=== PATIENT | female | born 1995 ===

== ENCOUNTER 2021-03-29 18:43 | Emergency (ER) | payer OTHER ==
--- NOTE | 2021-03-29 19:40 | ER ---
Nurse's Notes [facility] Name: Ric Powers Age: 25 yrs Sex: Female : 1995 Arrival Date: 03/29/2021 Time: 18:46 Bed 17 Private MD: Diagnosis: Other herpesviral infection Presentation: 03/29 18:49 Chief complaint: Patient states: lips swelling since yesterday morning, ice helped a jh5 little but still swollen. Coronavirus screen: Vaccine status: Patient reports being unvaccinated. Client denies travel out of the [place] in the last 14 days. Ebola Screen: Patient negative for fever greater than or equal to 101.5 degrees Fahrenheit, and additional compatible Ebola Virus Disease symptoms Patient denies exposure to infectious person. Patient denies travel to an Ebola-affected area in the 21 days before illness onset. No symptoms or risks identified at this time. Initial Sepsis Screen: Does the patient meet any 2 criteria? No. Patient's initial sepsis screen is negative. Does the patient have a suspected source of infection? No. Patient's initial sepsis screen is negative. Risk Assessment: Do you want to hurt yourself or someone else? Patient reports no desire to harm self or others. Onset of symptoms was March 28, 2021. 18:49 Method Of Arrival: Ambulatory [facility] 18:49 Acuity: MICHELE 4 5 Triage Assessment: 18:51 General: Appears in no apparent distress. comfortable, slender, Behavior is calm, 5 cooperative, appropriate for age. Pain: Denies pain. Historical: - Allergies: 18:50 No Known Allergies; [facility] - Home Meds: 18:50 None [Active]; [facility] - PMHx: 18:50 None; [facility] - Immunization history:: Adult Immunizations up to date. - Social history:: Smoking status: Patient denies any tobacco usage or history of. Assessment: 19:15 General: Appears uncomfortable, Behavior is calm, cooperative. Pain: Complains of pain cc4 in mouth/ upper \T\ lower lips Pain does not radiate. Pain currently is 8 out of 10 on a pain scale. Quality of pain is described as throbbing, Pain began 1 day ago. Is continuous, Alleviated by nothing. Aggravated by eating, Talking. Neuro: No deficits noted. Level of Consciousness is awake, alert, obeys commands, Oriented to person, place, time, situation. Cardiovascular: No deficits noted. Respiratory: No deficits noted. Airway is patent Respiratory effort is even, unlabored, Respiratory pattern is regular, symmetrical. GI: No signs and/or symptoms were reported involving the gastrointestinal system. : No signs and/or symptoms were reported regarding the genitourinary system. EENT: No signs and/or symptoms were reported regarding the EENT system. Derm: Skin is healthy with good turgor, has lesions on multiple upper \T\ lower lips with c/o pain. Musculoskeletal: No signs and/or symptoms reported regarding the musculoskeletal system. Vital Signs: 18:49 BP 113 / 77; Pulse 80; Resp 16; Temp 97.9; Pulse Ox 100% ; Weight 39.46 kg; Height 4 [facility] ft. 9 in. (144.78 cm); 18:49 Body Mass Index 18.83 (39.46 kg, 144.78 cm) [facility] ED Course: 18:46 Patient arrived in ED. as 18:50 Triage completed. [facility] 18:55 Deni Bernal PA is PHCP. [facility] 18:55 Tutu Mcknight MD is Attending Physician. [facility] 19:20 Jane Raymundo, RN is Primary Nurse. 2 Administered Medications: No medications were administered Outcome: 19:39 Discharge ordered by MD. [facility] 19:53 Patient left the ED. [facility] Signatures: Deni Bernal PA PA jmm Martinez, Amelia as Cooper, Christie, RN RN cc4 Jane Raymundo, RN RN sl2 Flora Flanagan RN RN 5
--- NOTE | 2021-03-29 19:40 | EDPHYS ---
Physician Documentation [facility] Name: Ric Powers Age: 25 yrs Sex: Female : 1995 Arrival Date: 03/29/2021 Time: 18:46 Bed 17 Private MD: ED Physician Tutu Mcknight HPI: 03/29 19:15 This 25 yrs old Female presents to ER via Ambulatory with complaints of Lips Swelling. jmm 19:15 The patient presents with swelling. Onset: The symptoms/episode began/occurred jm gradually. Modifying factors: The symptoms are alleviated by nothing, the symptoms are aggravated by nothing. Associated signs and symptoms: Pertinent positives: redness in area, swelling, Pertinent negatives: fever. This is a 25-year-old female with no chronic medical conditions presents emerged department with complaints of swelling to her lips. Denies fever patient states that symptoms are combination of pain and pruritus.. Historical: - Allergies: 18:50 No Known Allergies; [facility] - Home Meds: 18:50 None [Active]; [facility] - PMHx: 18:50 None; [facility] - Immunization history:: Adult Immunizations up to date. - Social history:: Smoking status: Patient denies any tobacco usage or history of. ROS: 19:15 Constitutional: Negative for fever, chills, and weight loss, Cardiovascular: Negative jm for chest pain, palpitations, and edema, Respiratory: Negative for shortness of breath, cough, wheezing, and pleuritic chest pain. 19:15 Skin: Positive for rash. 19:15 All other systems are negative. Exam: 19:15 Constitutional: This is a well developed, well nourished patient who is awake, alert, jmm and in no acute distress. Head/Face: atraumatic. Eyes: EOMI, no conjunctival erythema appreciated 19:15 Neck: Trachea midline, Supple Chest/axilla: Normal chest wall appearance and motion. Cardiovascular: Regular rate and rhythm. No edema appreciated Respiratory: Normal respirations, no respiratory distress appreciated Abdomen/GI: Non distended, soft Back: Normal ROM Skin: General appearance color normal MS/ Extremity: Moves all extremities, no obvious deformities appreciated, no edema noted to the lower extremities Neuro: Awake and alert, normal gait Psych: Behavior is normal, Mood is normal, Patient is cooperative and pleasant 19:15 ENT: Vesicular lesions noted surrounding the lips. Vital Signs: 18:49 BP 113 / 77; Pulse 80; Resp 16; Temp 97.9; Pulse Ox 100% ; Weight 39.46 kg; Height 4 jh5 ft. 9 in. (144.78 cm); 18:49 Body Mass Index 18.83 (39.46 kg, 144.78 cm) jh5 MDM: 19:15 Patient medically screened. [facility] 19:39 Data reviewed: vital signs, nurses notes. Counseling: I had a detailed discussion with [facility] the patient and/or guardian regarding: the historical points, exam findings, and any diagnostic results supporting the discharge/admit diagnosis, the need for outpatient follow up, to return to the emergency department if symptoms worsen or persist or if there are any questions or concerns that arise at home. Administered Medications: No medications were administered Disposition Summary: 03/29/21 19:39 Discharge Ordered Location: Home [facility] Condition: Stable [facility] Diagnosis - Other herpesviral infection [facility] Followup: [facility] - With: Private Physician - When: 2 - 3 days - Reason: Recheck today's complaints, Continuance of care, Re-evaluation by your physician Discharge Instructions: - Discharge Summary Sheet [facility] Forms: - Medication Reconciliation Form [facility] - Thank You Letter [facility] - Antibiotic Education [facility] - Prescription Opioid Use [facility] Prescriptions: - mupirocin 2 % Topical ointment - apply 1 application by TOPICAL route 3 times per day for 5 days; 1 tube; [facility] Refills: 0, Product Selection Permitted - Acyclovir 400 mg Oral Tablet - take 1 tablet by ORAL route every 8 hours for 5 days; 15 tablet; Refills: 0, [facility] Product Selection Permitted Addendum: 04/01/2021 07:36 Co-signature as Attending Physician, Tutu Mcknight MD I agree with the assessment and r n plan of care. Attestation: The patient's history, exam findings, diagnostics, and a summary of any interventions or procedures was reviewed in detail with Deni RAMOS. Signatures: Deni Bernal PA PA jmm Nieto, Roman, MD MD rn PanchitoFlora RN RN [facility]
[2021-03-29 19:58] VITALS: BP 113/77; TEMP 97.9; O2SAT 100
== END 2021-03-29 19:53 | disposition home or self-care (01) ==
LOC: ER 18:43
DX: B00.1 Herpesviral vesicular dermatitis (principal)
CPT/HCPCS: 99281